=== PATIENT | male | born 1985 | race Caucasian/White ===

== ENCOUNTER 2019-05-10 19:14 | Emergency (ER) | payer SELFPAY ==
[2019-05-10] MEDS: HYDROCODONE/APAP (5/325) TAB PO (21:01)
[2019-05-10] MEDS: KETOROLAC 30 MG INJ IM (21:01)
== END 2019-05-10 22:02 | disposition home or self-care (01) ==
LOC: FTE 19:14
DX: S49.92XA Unspecified injury of left shoulder and upper arm, initial encounter (principal); X50.0XXA Overexertion from strenuous movement or load, initial encounter; Y92.9 Unspecified place or not applicable
CPT/HCPCS: 96372; 99284-25